=== PATIENT | female | born 1950 | race Caucasian/White ===

== ENCOUNTER → 2019-05-12 | Outpatient (CLI) | payer MEDICARE | END | disposition home or self-care (01) | LOC: CFH 07:42 | PROVIDERS: ATTEND Internal Medicine Cardiovascular Disease | DX: I08.8 Other rheumatic multiple valve diseases (principal); K76.89 Other specified diseases of liver | CPT/HCPCS: 75571; 93306 ==

== ENCOUNTER 2020-11-28 05:54 | Day surgery (SDC) | payer MEDICARE ==
[2020-11-26 14:50] LABS: BASOPHILS % (AUTO) 1 % (0-1); EOSINOPHILS % (AUTO) 3 % (1-7); LYMPHOCYTES % (AUTO) 38 % (22-44); MEAN CORPUSCULAR HEMOGLOBIN 31.1 pg (27.0-34.8); MEAN CORPUSCULAR HGB CONC 34.2 g/dL (32.4-35.8); MEAN PLATELET VOLUME 7.3 fL (7.4-10.4); MONOCYTES % (AUTO) 10 % (2-9); NEUTROPHILS % (AUTO) 48 % (42-75); PLATELET COUNT 307 x10^3/uL (130-400); RED BLOOD COUNT 4.62 x10^6/uL (3.82-5.3); RED CELL DISTRIBUTION WIDTH 13.2 % (9.6-15.2)
[2020-11-26 14:53] LABS: MD NO
[2020-11-26 14:55] LABS: ALANINE AMINOTRANSFERASE 31 U/L (12-78); ALBUMIN 4.1 g/dL (3.4-5.0); ANION GAP 3 mmol/L (5-15); CALCIUM 9.7 mg/dL (8.5-10.1); CHLORIDE 104 mmol/L (98-107)
[2020-11-26 14:58] LABS: ALKALINE PHOSPHATASE 63 U/L (45-117); BILIRUBIN,TOTAL 0.6 mg/dL (0.2-1.0); CREATININE 0.81 mg/dL (0.55-1.02); TOTAL PROTEIN 7.8 g/dL (6.4-8.2)
[~2020-11-28] VITALS: Ht 152.4 cm; Wt 77.0 kg
[~2020-11-28 05:54] MED LIST: ALIR75PE SC; CALCIUM, MAG, ZINC PO; CHOL10003 PO; CYAN2500 PO; ESCI5TAB25 PO; ESTR0.5T3 PO; FURO20TA3 PO; HAIR, SKIN, NAILS PO; L-METHYLFOLATE PO; LUTE20TA PO; OMEG1CAP39 PO; POTA20TA6 PO; QUNOL PO; TURMERIC PO; [UNRECOGNIZED DRUG - OTHER] PO
[2020-11-28] MEDS ORDERED: FENTANYL PF 100 MCG/2ML ONE (06:44)
[2020-11-28] MEDS ORDERED: MIDAZOLAM 1 MG/ML, 2ML ONE (06:44)
[2020-11-28] MEDS ORDERED: METHYLENE BLUE 50 MG/10 ML AMP ONE (06:55)
[2020-11-28] MEDS ORDERED: EPINEPHRINE 1 MG/ML, 1ML ONE (06:55)
[2020-11-28] MEDS ORDERED: BUPIVACAINE/PF 0.5% ONE (06:55)
[2020-11-28] MEDS ORDERED: LACTATED RINGERS 1,000 ML IV SCH (07:00)
[2020-11-28] MEDS ORDERED: CHLORHEXIDINE 15 ML UDC MM ONE (07:00)
[2020-11-28] MEDS ORDERED: SUCCINYLCHOLINE 20 MG/ML, 10ML ONE (07:26)
[2020-11-28] MEDS ORDERED: ONDANSETRON 2MG/ML, 2ML ONE (07:26)
[2020-11-28] MEDS ORDERED: GLYCOPYRROLATE 0.2MG/1ML, 5ML ONE (07:26)
[2020-11-28] MEDS ORDERED: PROPOFOL 10 MG/ML, 20ML ONE (07:26)
[2020-11-28] MEDS ORDERED: ROCURONIUM 10MG/ML,5ML ONE (07:26)
[2020-11-28] MEDS ORDERED: NEOSTIGMINE 1 MG/ML, 10ML ONE (07:26)
[2020-11-28] MEDS ORDERED: CEFAZOLIN 1,000 MG ONE (07:26)
[2020-11-28] MEDS ORDERED: PROPOFOL 100 ML ONE (07:27)
[2020-11-28] MEDS ORDERED: DEXAMETHASONE 4 MG/ML, 1ML ONE (07:34)
[2020-11-28] MEDS ORDERED: PROMETHAZINE 25 MG/ML, 1ML IV PRN (08:00)
[2020-11-28] MEDS ORDERED: ACETAMINOPHEN 325 MG TABLET PO PRN (08:00)
[2020-11-28] MEDS ORDERED: HYDROmorphone 2 MG/ML, 1ML IVPush PRN (08:00)
[2020-11-28] MEDS ORDERED: ALBUTEROL SULFATE 2.5 MG/3 ML NPPB PRN (08:00)
[2020-11-28] MEDS ORDERED: FENTANYL PF 100 MCG/2ML IV PRN (08:00)
[2020-11-28] MEDS ORDERED: LABETALOL 5MG/ML, 20ML IV PRN (08:00)
[2020-11-28] MEDS ORDERED: OXYcodone 5 MG/5 ML ORAL.SOL UDC PO PRN (08:00)
[2020-11-28] MEDS ORDERED: MEPERIDINE/PF 25MG/0.5ML IVPush PRN (08:00)
[2020-11-28] MEDS ORDERED: KETOROLAC 30 MG/1 ML IV PRN (08:00)
[2020-11-28] MEDS ORDERED: hydrALAzine 20 MG/ML, 1ML IV PRN (08:00)
[2020-11-28] MEDS ORDERED: DIAZEPAM 5 MG/ML, 2ML IVPush PRN (08:00)
[2020-11-28] MEDS ORDERED: HYDR-3240 PO (09:34)
== END 2020-11-28 10:30 | disposition home or self-care (01) ==
LOC: OUT 05:54
PROVIDERS: ATTEND Surgery
DX: D17.39 Benign lipomatous neoplasm of skin and subcutaneous tissue of other sites (principal); Z20.822 Contact with and (suspected) exposure to COVID-19; Z79.899 Other long term (current) drug therapy; Z88.5 Allergy status to narcotic agent; Z91.040 Latex allergy status; Z90.710 Acquired absence of both cervix and uterus; Z80.42 Family history of malignant neoplasm of prostate; Z82.49 Family history of ischemic heart disease and other diseases of the circulatory system
CPT/HCPCS: 19120; 36415; 80053; 85025; 88305; 93005; J0171; J0330; J0690; J1100; J2250; J2405; J2704; J2710; J3010; J7120; U0003; Q9968